=== PATIENT | female | born 1980 | race Caucasian/White ===

== ENCOUNTER 2018-10-31 16:04 | Emergency (ER) | payer OTHER ==
[~2018-10-31] VITALS: Ht 160 cm; Wt 152.3 kg
[~2018-10-31 16:04] MED LIST: COLE3.753 PO; INSU100V8 SQ; INSU100V9 SQ; LISI1TAB20 PO; PARO20TA99 PO
[2018-10-31] MEDS ORDERED: IV NORMAL SALINE 1,000ML 1,000 ML IV SCH (16:27)
--- NOTE | 2018-10-31 16:32 | PHYS DOC ---
Past History Past Medical History: Diabetes, Hypertension Past Surgical History: No Surgical History Smoking: Less than 1pk/day Alcohol Use: None Drug Use: None Adult General Chief Complaint Chief Complaint: CHEST PAIN HPI HPI Patient is a 38-year-old female presents complaining of chest pain for the past month. There is been a constant dull ache with intermittent sort feels like her heart is about to pound out of her chest. The intermittent moments get better with walking around. Nothing makes the dull ache better or worse. There has been no shortness of breath. No coughing. 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 No increased shortness of breath. No PND, nor orthopnea. No recent travel. She took her blood pressure at an automated cough and it was high so she became worried and came to the emergency department she has not sought any other care for this discomfort. Symptoms are mild to moderate in intensity.[] Review of Systems Review of Systems Constitutional: Denies fever or chills [] Eyes: Denies change in visual acuity, redness, or eye pain [] HENT: Denies nasal congestion or sore throat [] Respiratory: Denies cough or shortness of breath [] Cardiovascular: No additional information not addressed in HPI [] GI: Denies abdominal pain, nausea, vomiting, bloody stools or diarrhea [] : Denies dysuria or hematuria [] Musculoskeletal: Denies back pain or joint pain [] Integument: Denies rash or skin lesions [] Neurologic: Denies headache, focal weakness or sensory changes [] Endocrine: Denies polyuria or polydipsia [] All other systems were reviewed and found to be within normal limits, except as documented in this note. Allergies Allergies Allergies Coded Allergies Type Severity Reaction Last Updated Verified Penicillins Allergy Unknown 04/13/13 Yes Physical Exam Physical Exam Constitutional: Well developed, well nourished, no acute distress, non-toxic appearance. [] HENT: Normocephalic, atraumatic, bilateral external ears normal, oropharynx moist, no oral exudates, nose normal. [] Eyes: PERRLA, EOMI, conjunctiva normal, no discharge. [] Neck: Normal range of motion, no tenderness, supple, no stridor. [] Cardiovascular:Heart rate regular rhythm, no murmur [] Lungs & Thorax: Bilateral breath sounds clear to auscultation [] Abdomen: Bowel sounds normal, soft, obese, no tenderness, no masses, no pulsatile masses. [] Skin: Warm, dry, no erythema, no rash. [] Back: No tenderness, no CVA tenderness. [] Extremities: No tenderness, no cyanosis, no clubbing, ROM intact, no edema. [] Neurologic: Alert and oriented X 3, normal motor function, normal sensory function, no focal deficits noted. [] Psychologic: Affect normal, judgement normal, mood normal. [] EKG EKG EKG shows a rate of 91 bpm, normal axis, QTC of 489 ms, no ST elevations. Interpreted by me at 1619. When compared with EKG of 04/08/2014, QTC has increased by 24 ms.[] Radiology/Procedures Radiology/Procedures PROCEDURE: PORTABLE CHEST 1V EXAM: Chest, single view. HISTORY: Chest pain. COMPARISON: 04/08/2014 FINDINGS: A frontal view of the chest is obtained. There is no infiltrate, pleural effusion or pneumothorax. The heart is normal in size. IMPRESSION: No acute pulmonary finding.[] Course & Med Decision Making Course & Med Decision Making Pertinent Labs and Imaging studies reviewed. (See chart for details) ED course: Patient arrived, was placed in bed, and tolerated exam well. After the return of laboratory and imaging findings, these were discussed with the patient. Her magnesium was repleted. Her blood pressure improved without any interventions in the emergency department. All questions were answered. She was discharged in improved condition. Medical decision making: Patient with a heart score of 0. No evidence of pulmonary embolism. No evidence of pneumonia or pneumothorax nor thoracic aneury sm dissection. No evidence of esophageal rupture.[] Dragon Disclaimer Dragon Disclaimer This electronic medical record was generated, in whole or in part, using a voice recognition dictation system. Departure Departure: Impression: Primary Impression: Chest pain Additional Impressions: Hypomagnesemia Episode of hypertension UTI (urinary tract infection) Disposition: 01 HOME, SELF-CARE Condition: IMPROVED Referrals: MICHELLE HERNANDEZ APRN (PCP) Follow-up in 2 days Patient Instructions: Chest Pain (Nonspecific), DASH Diet, Hypertension, Hypoma gnesemia, Urinary Tract Infection Additional Instructions: Follow-up with your regular doctor in 2 days. Follow the dietary approach to stop hypertension guidelines. Return to the ER if worsening pain, difficulty breathing, or any other concerns. Scripts Sulfamethoxazole/Trimethoprim (BACTRIM DS TABLET) 1 Each Tablet 1 TAB PO BID for UTI, #20 TAB Prov: MARIUM APONTE DO 10/31/18 Tramadol Hcl (TRAMADOL HCL) 50 Mg Tablet 50 MG PO PRN Q6HRS PRN for PAIN, #10 TAB Prov: MARIUM APONTE DO 10/31/18 Problem Qualifiers Primary Impression: Chest pain Chest pain type: unspecified Qualified Codes: R07.9 - Chest pain, unspecified Additional Impressions: UTI (urinary tract infection) Urinary tract infection type: site unspecified Hematuria presence: without hematuria Qualified Codes: N39.0 - Urinary tract infection, site not specified MARIUM APONTE DO Oct 31, 2018 16:32
[2018-10-31 16:42] LABS: BASO # 0.1 x10^3/uL (0.0-0.2); BASO % 1 % (0-3); EOS # 0.3 x10^3/uL (0.0-0.7); EOS % 4 % (0-3); HEMATOCRIT 35.1 % (36.0-47.0); HEMOGLOBIN 12.2 g/dL (12.0-15.5); LYMPH # 2.5 x10^3/uL (1.0-4.8); LYMPH % 28 % (24-48); MEAN CORPUSCULAR HEMOGLOBIN 31 pg (25-35); MEAN CORPUSCULAR HGB CONC 35 g/dL (31-37); MEAN CORPUSCULAR VOLUME 88 fL (79-100); MONO # 0.5 x10^3/uL (0.0-1.1); MONO % 6 % (0-9); NEUT # 5.6 x10^3uL (1.8-7.7); NEUT % 62 % (31-73); PLATELET COUNT 264 x10^3/uL (140-400); RED BLOOD COUNT 3.98 x10^6/uL (3.50-5.40); RED CELL DISTRIBUTION WIDTH 14.1 % (11.5-14.5)
[2018-10-31 16:52] LABS: ALBUMIN 3.5 g/dL (3.4-5.0); ALBUMIN/GLOBULIN RATIO 0.9 (1.0-1.7); CALCIUM 9.1 mg/dL (8.5-10.1); CREATININE 0.9 mg/dL (0.6-1.0); GFR 70.5; MAGNESIUM 1.5 mg/dL (1.8-2.4); POTASSIUM 3.9 mmol/L (3.5-5.1); TOTAL BILIRUBIN 0.3 mg/dL (0.2-1.0); TOTAL PROTEIN 7.5 g/dL (6.4-8.2)
--- NOTE | 2018-10-31 16:57 | RAD ---
EXAM: Chest, single view. HISTORY: Chest pain. COMPARISON: 04/08/2014 FINDINGS: A frontal view of the chest is obtained. There is no infiltrate, pleural effusion or pneumothorax. The heart is normal in size. IMPRESSION: No acute pulmonary finding. Electronically signed by: Love Tong MD (10/31/2018 4:54 PM) [place] [id number]
[2018-10-31 17:13] LABS: BARBITURATES NEG (NEG); BENZODIAZEPINES NEG (NEG); CANNABINOIDS POS (NEG); COCAINE NEG (NEG); METHADONE NEG (NEG); OPIATES NEG (NEG); PHENCYCLIDINE NEG (NEG)
[2018-10-31] MEDS ORDERED: MAGNESIUM SULFATE 1GM 100 ML IV ONE (17:15)
[2018-10-31 17:28] LABS: AMPHETAMINE/METHAMPHETAMINE NEG (NEG)
[2018-10-31 17:29] LABS: BACTERIA,URINE FEW /HPF (0-FEW); BILIRUBIN,URINE NEG (NEG); CLARITY,URINE HAZY; COLOR,URINE YELLOW; GLUCOSE,URINE 500 mg/dL (NEG); NITRITE,URINE NEG (NEG); SQUAMOUS EPITHELIAL CELL,UR OCC /LPF; UROBILINOGEN,URINE 0.2 mg/dL (0.2 mg/dL)
[2018-10-31] MEDS ORDERED: TRAM50TA PO (17:45)
[2018-10-31] MEDS ORDERED: SULF1TAB24 PO (18:06)
[2018-10-31 18:19] VITALS: BP 160/88
--- NOTE | 2018-10-31 18:31 | EKG ---
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
== END 2018-10-31 18:40 | disposition home or self-care (01) ==
LOC: ER 16:05
DX: I10 Essential (primary) hypertension (principal); N39.0 Urinary tract infection, site not specified; E83.42 Hypomagnesemia; E11.9 Type 2 diabetes mellitus without complications; F17.200 Nicotine dependence, unspecified, uncomplicated; Z88.0 Allergy status to penicillin
CPT/HCPCS: 36415; 71045; 80053; 80307; 81001; 81025; 83690; 83735; 84484; 85025; 85379; 93005; 96365; 99285; J3475; J7030